=== PATIENT | female | born 1930 | race Caucasian/White ===

== ENCOUNTER 2017-11-23 13:00 | Emergency (ER) | payer BC, MEDICARE, OTHER ==
[2017-11-23 13:13] VITALS: BP 151/74; PULSE 81; TEMP 98.6; BMI 27.8
--- NOTE | 2017-11-23 13:15 | PDOC ---
History of Present Illness - General Chief Complaint: Injury Stated Complaint: FACIAL INJURY Time Seen by Provider: 11/23/17 13:03 History Source: Patient Exam Limitations: No Limitations - History of Present Illness Initial Comments: 87 yo F history HTN presents with facial pain s/p fall. She states she had a mechanical fall 3 days ago. She fell to her knees, then forward onto her face. She did not lose consciousness at the time. She c/o pain to the right side of her nose. Mild headache behind her eyes B/L. Denies weakness, numbness. She states her vision was blurry after the fall but she is now back to baseline. She denies any stiff neck. She has mild B/L knee pain, but has been ambulating normally. She did not seek evaluation at the time, but was brought in today after a family urged her to seek evaluation. Past History - Past Medical History Allergies/Adverse Reactions: Allergies Allergy/AdvReac Type Severity Reaction Status Date / Time Sulfa (Sulfonamide Allergy Intermediate Hives Verified 11/23/17 13:02 Antibiotics) shellfish derived Allergy Unknown Verified 11/23/17 13:02 iodine Allergy Hives Verified 11/23/17 13:02 Home Medications: Ambulatory Orders Enalapril Maleate [Vasotec] 10 mg PO DAILY 09/30/12 Anemia: No Asthma: No Cancer: No Cardiac Disorders: No CVA: No COPD: No CHF: No Dementia: No Diabetes: No GI Disorders: No Disorders: No HTN: Yes Hypercholesterolemia: Yes Liver Disease: No Seizures: No Thyroid Disease: No Other medical history: hard of hearing - Surgical History Abdominal Surgery: No Appendectomy: No Cardiac Surgery: No Cholecystectomy: Yes () Lung Surgery: No Neurologic Surgery: No Orthopedic Surgery: Yes (ROTATOR CUFF LEFT SHOULDER) - Suicide/Smoking/Psychosocial Hx Smoking History: Former smoker Have you smoked in the past 12 months: No If you are a former smoker, when did you quit?: Information on smoking cessation initiated: No Hx Alcohol Use: No Drug/Substance Use Hx: No Substance Use Type: None Hx Substance Use Treatment: No Review of Systems - Review of Systems Able to Perform ROS?: Yes Comments:: GENERAL/CONSTITUTIONAL: No fever or chills. No weakness. HEAD, EYES, EARS, NOSE AND THROAT: No change in vision. No ear pain or discharge. No sore throat. +Pain to the right side of the bridge of the nose. CARDIOVASCULAR: No chest pain or shortness of breath. RESPIRATORY: No cough, wheezing, or hemoptysis. GASTROINTESTINAL: No nausea, vomiting, diarrhea or constipation. GENITOURINARY: No dysuria, frequency, or change in urination. MUSCULOSKELETAL: No joint or muscle swelling or pain. No neck or back pain. SKIN: No rash NEUROLOGIC: No headache, vertigo, loss of consciousness, or change in strength/ sensation. ENDOCRINE: No increased thirst. No abnormal weight change. HEMATOLOGIC/LYMPHATIC: No anemia, easy bleeding, or history of blood clots. ALLERGIC/IMMUNOLOGIC: No hives or skin allergy. *Physical Exam - Vital Signs Last Vital Signs Temp Pulse Resp BP Pulse Ox 98.6 F 81 18 151/74 96 11/23/17 13:00 11/23/17 13:00 11/23/17 13:00 11/23/17 13:00 11/23/17 13:00 - Physical Exam Comments: GENERAL: Awake, alert, and fully oriented, in no acute distress HEAD: +Small ecchymosis to the R inferior orbital area. +Tenderness to the R nasal bridge. EYES: PERRLA, EOMI, sclera anicteric, conjunctiva clear ENT: Auricles normal inspection, hearing grossly normal, nares patent, oropharynx clear without exudates. Moist mucosa. Nasal septum is midline, no hematoma. NECK: Normal ROM, supple, no lymphadenopathy, JVD, or masses LUNGS: Breath sounds equal, clear to auscultation bilaterally. No wheezes, and no crackles HEART: Regular rate and rhythm, normal S1 and S2, no murmurs, rubs or gallops ABDOMEN: Soft, nontender, normoactive bowel sounds. No guarding, no rebound. No masses EXTREMITIES: Normal range of motion, no edema. No clubbing or cyanosis. No cords, erythema, or tenderness NEUROLOGICAL: Cranial nerves II through XII grossly intact. Normal speech, normal gait SKIN: Warm, Dry, normal turgor, no rashes or lesions noted. Medical Decision Making - Medical Decision Making 11/23/17 15:19 CTs reviewed, no acute findings. Stable for DC home. *DC/Admit/Observation/Transfer Diagnosis at time of Disposition: Fall Qualifiers: Encounter type: initial encounter Qualified Code(s): W19.XXXA - Unspecified fall, initial encounter - Discharge Dispostion Disposition: HOME Condition at time of disposition: Stable Decision to Admit order: No - Referrals Referrals: Marija Chong [Primary Care Provider] - - Patient Instructions Printed Discharge Instructions: How to Prevent Falls - Post Discharge Activity
== END 2017-11-23 15:30 | disposition home or self-care (01) ==
LOC: FER 13:00
DX: Z04.3 Encounter for examination and observation following other accident (principal); W18.39XA Other fall on same level, initial encounter; Y93.9 Activity, unspecified; Y92.9 Unspecified place or not applicable; I10 Essential (primary) hypertension; E78.00 Pure hypercholesterolemia, unspecified; Z87.891 Personal history of nicotine dependence
CPT/HCPCS: 70450-TC; 70486-TC; 99283-25

== ENCOUNTER 2018-03-04 07:04 | Day surgery (SDC) | payer BC ==
[2018-02-28 12:08] VITALS: BMI 29.2
[2018-03-04 08:35] VITALS: TEMP 97.4
[2018-03-04 11:57] VITALS: BP 137/53; PULSE 64
== END 2018-03-04 10:00 | disposition home or self-care (01) ==
LOC: JASU-ENDO 07:04
PROVIDERS: ATTEND Internal Medicine Gastroenterology
PROC: 0DJD8ZZ Inspection of Lower Intestinal Tract, Via Natural or Artificial Opening Endoscopic (ICD-10-PCS; principal; 2018-03-04 08:00)
DX: Z12.11 Encounter for screening for malignant neoplasm of colon (principal); K57.30 Diverticulosis of large intestine without perforation or abscess without bleeding; I10 Essential (primary) hypertension; H40.9 Unspecified glaucoma

== ENCOUNTER 2018-03-29 10:37 | Emergency (ER) | payer BC ==
[2018-03-29 10:53] VITALS: BP 142/70; PULSE 95; TEMP 98.1; BMI 28.3
[2018-03-29] MEDS ORDERED: morphine SULFATE 4 MG/ML VIAL ONE (11:00)
[2018-03-29] MEDS ORDERED: morphine SULFATE 4 MG/ML VIAL IM ONE (11:00)
--- NOTE | 2018-03-29 11:10 | PDOC ---
History of Present Illness - General Chief Complaint: Rash Stated Complaint: PAINFUL RASH Time Seen by Provider: 03/29/18 10:59 History Source: Patient Exam Limitations: No Limitations - History of Present Illness Initial Comments: 03/29/18 11:03 CHIEF COMPLAINT: Right chest pain from shingles HISTORY OF PRESENT ILLNESS: 87-year-old female with a history of hypertension, was recently diagnosed 3 weeks ago with shingles in the right thoracic dermatome. The rash is healing, but she comes in because the pain is severe. Her primary physician prescribed tramadol 50 mg which is not helping. The pain is severe to touch. She is unable to wear a bra due to the sensitivity of the skin in the area of the rash. She is having great difficulty sleeping. Any touch to the area exacerbates the pain. The pain is isolated to the right thoracic dermatomal region posteriorly and laterally. REVIEW OF SYSTEMS: GENERAL/CONSTITUTIONAL: No fever or chills. No weakness. No weight change. HEAD, EYES, EARS, NOSE AND THROAT: No change in vision. No ear pain or discharge. No sore throat. CARDIOVASCULAR: Positive right skin pain overlying the chest. No anterior chest pain. No pain on exertion. RESPIRATORY: No cough, wheezing, or hemoptysis. GASTROINTESTINAL: No nausea, vomiting, diarrhea or constipation. No rectal bleeding. GENITOURINARY: No dysuria, frequency, or change in urination. MUSCULOSKELETAL: No joint or muscle swelling or pain. No neck or back pain. SKIN AND BREASTS: Healing rash from shingles over the right posterior thorax and in the right axillary region radiating from the spine around the right. All lesions are crusted over with minimal scabbing, but there is increased pigmentation over this region. NEUROLOGIC: No headache, vertigo, loss of consciousness, or loss of sensation. Positive severe dermatomal pain to the right thoracic area. PSYCHIATRIC: No depression or anxiety. ENDOCRINE: No increased thirst. No abnormal weight change. HEMATOLOGIC/LYMPHATIC: No anemia, easy bleeding, or history of blood clots. ALLERGIC/IMMUNOLOGIC: No hives or skin allergy. No latex allergy. Past History - Past Medical History Allergies/Adverse Reactions: Allergies Allergy/AdvReac Type Severity Reaction Status Date / Time Sulfa (Sulfonamide Allergy Intermediate Hives Verified 03/29/18 10:38 Antibiotics) shellfish derived Allergy Unknown Verified 03/29/18 10:38 iodine Allergy Hives Verified 03/29/18 10:38 FRAGRANCE Allergy Uncoded 03/29/18 10:38 Home Medications: Ambulatory Orders Enalapril Maleate [Vasotec -] 10 mg PO DAILY 09/30/12 Cholecalciferol (Vitamin D3) [Vitamin D -] 400 unit PO DAILY 02/28/18 Famotidine [Pepcid -] 20 mg PO DAILY 02/28/18 Timolol [Betimol] 1 500s OU BID 02/28/18 Capsaicin 0.075% [Trixaicin [Nf]] 60 gm TP TID PRN #1 tube 03/29/18 Gabapentin 300 mg PO TID #90 capsule 03/29/18 Ondansetron HCl [Zofran] 1 - 2 tab PO BID PRN 03/29/18 Oxycodone HCl/Acetaminophen [Percocet 5-325 mg Tablet] 1 tab PO Q6H PRN #14 tablet MDD 4 03/29/18 Tramadol HCl 50 mg PO Q6H PRN 03/29/18 Anemia: No Asthma: No Cancer: No Cardiac Disorders: No CVA: No COPD: No CHF: No Dementia: No Diabetes: No GI Disorders: No Disorders: No HTN: Yes Hypercholesterolemia: Yes Liver Disease: No Seizures: No Thyroid Disease: No Other medical history: GLAUCOMA - Surgical History Abdominal Surgery: No Appendectomy: No Cardiac Surgery: No Cholecystectomy: Yes () Lung Surgery: No Neurologic Surgery: No Orthopedic Surgery: Yes (ROTATOR CUFF LEFT SHOULDER) - Suicide/Smoking/Psychosocial Hx Smoking History: Former smoker Have you smoked in the past 12 months: No If you are a former smoker, when did you quit?: Information on smoking cessation initiated: No Hx Alcohol Use: No Drug/Substance Use Hx: No Substance Use Type: None Hx Substance Use Treatment: No *Physical Exam - Vital Signs Last Vital Signs Temp Pulse Resp BP Pulse Ox 98.1 F 95 H 18 142/70 100 03/29/18 10:37 03/29/18 10:37 03/29/18 10:37 03/29/18 10:37 03/29/18 10:37 - Physical Exam Comments: 03/29/18 11:06 GENERAL: The patient is awake, alert, and fully oriented, in no acute distress. She is complaining of severe pain to touch in the right thoracic region, T3 T4 region. HEAD: Normal with no signs of trauma. EYES: Pupils equal, round and reactive to light, extraocular movements intact, sclera anicteric, conjunctiva clear. ENT: Ears normal, nares patent, oropharynx clear without exudates. Moist mucous membranes. NECK: Normal range of motion, supple without lymphadenopathy, JVD, or masses. LUNGS: Breath sounds equal, clear to auscultation bilaterally. No wheezes, and no crackles. + Positive pain to the right chest when touching the skin with the stethoscope to listen to the breath sounds. HEART: Regular rate and rhythm, normal S1 and S2 without murmur, rub or gallop. ABDOMEN: Soft, nontender, normoactive bowel sounds. No guarding, no rebound. No masses. EXTREMITIES: Normal range of motion, no edema. No clubbing or cyanosis. No cords, erythema, or tenderness. NEUROLOGICAL: Cranial nerves intact. Normal speech, normal gait. + Positive hyperesthesia and pain to the skin overlying the T3 and T4 dermatome on the right side. PSYCH: Normal mood, normal affect. SKIN: Warm, Dry, normal turgor, + the shingles rash in the right T3-T4 dermatome region is resolving, currently with hyperpigmentation and minimal residual scabbing. Medical Decision Making - Medical Decision Making 03/29/18 13:04 87-year-old female, 3 weeks into a course of shingles in the right T3-T4 dermatomal region. The rash is almost completely healed, however, the patient has severe post herpetic neuralgia and hyperesthesia with pain to touch. In the ED she has been given morphine with modest reduction in pain. Plan for home pain management will be gabapentin 300 mg 3 times a day, starting with 1 tablet today and then increasing. Patient will also be given Percocet for breakthrough pain. Finally she will be given capsaicin cream to apply. She has been referred to Dr. Remy, pain management doctor. *DC/Admit/Observation/Transfer Diagnosis at time of Disposition: Postherpetic neuralgia - Discharge Dispostion Disposition: HOME Condition at time of disposition: Improved Decision to Admit order: No - Prescriptions Prescriptions: Capsaicin 0.075% [Trixaicin [Nf]] 60 gm TP TID PRN #1 tube PRN Reason: neuralgia Gabapentin 300 mg PO TID #90 capsule Oxycodone HCl/Acetaminophen [Percocet 5-325 mg Tablet] 1 tab PO Q6H PRN #14 tablet MDD 4 PRN Reason: Pain - Referrals Referrals: Marija Chong [Primary Care Provider] - - Patient Instructions Printed Discharge Instructions: DI for Neuralgia Additional Instructions: You were evaluated today for severe pain related to shingles, also known as postherpetic neuralgia. You're advised to take gabapentin as prescribed, and Percocet if you have severe breakthrough pain. You may also apply capsaicin cream to the area to help relieve the pain. On Saturday, you should call the pain management doctor for a follow-up appointment. You may need an injection to help resolve the pain. Follow-up with her primary care physician, and feel free to return to the emergency department for any severe or progressive symptoms as needed. - Post Discharge Activity
== END 2018-03-29 13:29 | disposition home or self-care (01) ==
LOC: FER 10:37
PROC: 3E023NZ Introduction of Analgesics, Hypnotics, Sedatives into Muscle, Percutaneous Approach (ICD-10-PCS; principal; 2018-03-29)
DX: B02.29 Other postherpetic nervous system involvement (principal); Z87.891 Personal history of nicotine dependence; I10 Essential (primary) hypertension; E78.00 Pure hypercholesterolemia, unspecified; H40.9 Unspecified glaucoma
CPT/HCPCS: 96372; 99282-25